=== PATIENT | male | born 1950 | race Caucasian/White ===

== ENCOUNTER 2024-08-10 03:06 | Emergency (ER) | payer OTHER ==
[~2024-08-10] VITALS: Ht 172.7 cm; Wt 81.7 kg
[~2024-08-10 03:06] MED LIST: 1/2 NS 250ml250 ML; Aspir 8181 MG PO; B-12500 MC2 PO; DULO60 PO; Flonase 0.05% N16 GM; Hair, Skin & N1 EACH PO; LIDO700A20 TOP; MELATONIN5 M1 PO; MEMA10 PO; MIRALAX17 GM PO; MORP15ER PO; OMEP20ER PO; QUET25 PO; ROSU5 PO; SENN187 PO; SIME80CH PO; SIMV40 PO; TAMS.4ER PO; THERA-D2000 UNIT PO; TRAM50 PO
[2024-08-10 04:30] VITALS: BP 136/73
== END 2024-08-10 03:50 | disposition home or self-care (01) ==
LOC: ER 03:06
DX: S00.81XA Abrasion of other part of head, initial encounter (principal); S00.03XA Contusion of scalp, initial encounter; W06.XXXA Fall from bed, initial encounter; Z79.82 Long term (current) use of aspirin; Z79.899 Other long term (current) drug therapy
CPT/HCPCS: 70450; 72125; 99284-25